=== PATIENT | female | born 1985 | race Two or more races ===

== ENCOUNTER 2017-04-08 15:28 | Emergency (ER) | payer BC, OTHER ==
[~2017-04-08] VITALS: Ht 160 cm; Wt 79.0 kg
[2017-04-08 15:46] VITALS: Ht 160 cm; Wt 79.0 kg
[2017-04-08 17:28] LABS: ADD SCAN DIFF NO
[2017-04-08 17:30] LABS: BASOPHILS % 0.6 % (0.0-2.0); EOSINOPHILS # 0.2 10^3/ul (0.0-0.5); EOSINOPHILS % 3.9 % (0.0-7.0); HEMATOCRIT 34.7 % (37.0-47.0); HEMOGLOBIN 10.8 g/dl (12.0-16.0); LYMPHOCYTES # 1.9 10^3/ul (0.8-2.9); LYMPHOCYTES % 34.1 % (15.0-51.0); MEAN CORPUSCULAR HEMOGLOBIN 20.9 pg (29.0-33.0); MEAN CORPUSCULAR HGB CONC 31.1 g/dl (32.0-37.0); MEAN CORPUSCULAR VOLUME 67.2 fl (82.0-101.0); MEAN PLATELET VOLUME 9.4 fl (7.4-10.4); MONOCYTE # 0.3 10^3/ul (0.3-0.9); MONOCYTES % 6.3 % (0.0-11.0); NEUTROPHILS % 54.7 % (39.0-77.0); PLATELET COUNT 300 10^3/UL (140-415); RED BLOOD COUNT 5.16 10^6/ul (4.20-5.40); RED CELL DISTRIBUTION WIDTH 17.3 % (11.5-14.5); WHITE BLOOD COUNT 5.4 10^3/ul (4.8-10.8)
[2017-04-08 17:32] LABS: ADD UMIC YES; URINE BILIRUBIN (Dip) NEGATIVE (NEGATIVE); URINE BLOOD (Dip) 3+ (NEGATIVE); URINE COLOR LT. RED (YELLOW); URINE GLUCOSE (Dip) NEGATIVE (NEGATIVE); URINE KETONES (Dip) NEGATIVE (NEGATIVE); URINE LEUKOCYTE ESTERASE (Dip) NEGATIVE (NEGATIVE); URINE NITRITE (Dip) NEGATIVE (NEGATIVE); URINE TOTAL PROTEIN (Dip) 1+ (NEGATIVE); URINE UROBILINOGEN (Dip) 0.2 E.U./dL (0.1-1.0)
[2017-04-08 17:46] LABS: SQUAMOUS EPITHELIAL CELL,UR FEW; URINE RBCS >200 /HPF (0)
--- NOTE | 2017-04-08 18:52 | RADRPT ---
PROCEDURE: US Pelvis CLINICAL INDICATION: vaginal bleeding TECHNIQUE: Multiple sonographic images of the pelvis were obtained utilizing a transabdominal and endovaginal technique. The images were reviewed on a PACS workstation. COMPARISON: None. LMP: 03/15/2017 FINDINGS: The uterus measures 8.0 x 4.7 x 5.7 cm. The endometrial echo complex measures 4 mm in thickness. T here is trace endocervical fluid. The uterus is heterogeneous and the junctional zone between the en dometrium and myometrium is indistinct. The right ovary measures 2.2 x 1.0 x 2.4 cm. The left ovary measures 3.0 x 1.4 x 1.4 cm. There is no rmal vascular flow in both ovaries. No significant ovarian lesions are seen. No significant pelvic free fluid is identified. IMPRESSION: The uterus is heterogeneous and the junctional zone between the endometrium and myometrium is indist inct. Clinical correlation for adenomyosis is recommended. There is trace endocervical fluid which may be related to stage of the menstrual cycle. Bilateral ovaries adnexa are unremarkable. RPTAT: EE Physician Erik Date Time Electronically viewed and signed by Physician Erik on 04/08/2017 18:52 /
[2017-04-08] MEDS ORDERED: ACET500C5 PO (19:15)
--- NOTE | 2017-04-08 19:20 | ERD ---
ER Documentation Chief Complaint Date/Time DATE: 04/08/17 TIME: 19:16 Chief Complaint VAGINAL BLEEDING SINCE March WITH BLOOD CLOTS, 8/10 PAIN, DIZZINESS HPI Patient is a 32-year-old female who presents to the ED with vaginal bleeding 6 months. She states in the last 2 weeks her vaginal bleeding has increased and is passing clots. She states that she went to the [facility] 4 days ago and was given progesterone. However she states that the bleeding has not stopped and she is changing 5-6 pads a day. She denies she has mild dizziness. Denies headache or neck pain or neck stiffness. Denies chest pain or cough or shortness of breath. Denies leg pain or swelling. Denies abdominal pain, nausea, vomiting or diarrhea. States that she does have pelvic pain. She states that her primary care provider has given her control pills however her bleeding has not stopped. No other complaints. ROS All systems reviewed and are negative except as per history of present illness. Medications Home Meds Active Scripts Acetaminophen* (Tylophen*) 500 Mg Capsule, 1 CAP PO Q6H Y for PAIN AND OR ELEVATED TEMP, #20 CAP Prov:ELAINA RAY PA-C 04/08/17 Allergies Allergies: Coded Allergies: No Known Allergy (Unverified , 04/08/17) PMhx/Soc Medical and Surgical Hx: pt denies Medical Hx, pt denies Surgical Hx History of Surgery: Yes ( appendectomy, cholecystectomy) Hx Miscellaneous Medical Probl: Yes (Depression) Hx Alcohol Use: No Hx Substance Use: No Hx Tobacco Use: No Smoking Status: Never smoker FmHx Family History: No coronary disease, No diabetes, No other Physical Exam Vitals Vital Signs Date Time Temp Pulse Resp B/P Pulse Ox O2 Delivery O2 Flow Rate FiO2 04/08/17 15:46 99.7 92 17 116/70 100 Physical Exam GENERAL: Well-developed, well-nourished female. Appears in no acute distress. HEAD: Normocephalic, atraumatic. EYES: Pupils are equally reactive bilaterally. EOMs grossly intact. No conjunctival erythema. ENT: Moist mucous membranes. No uvula deviation. No kissing tonsils. No exudates. NECK: Supple. No lymphadenopathy or thyromegaly. No meningismus. negative kernig. negative brudinski. LUNG: Clear to auscultation bilaterally. No rhonchi, wheezing, rales or coarse breath sounds. HEART: Regular rate and rhythm. No murmurs, rubs or gallops. ABDOMEN: No scars, ecchymosis or rashes noted. Soft, nontender, and nondistended. Positive bowel sounds in all four quadrants. No rebound tenderness , no guarding. (-) McBurneys point tenderness. No CVA tenderness. BACK: No midline tenderness. Extremities: Equal pulses bilaterally. No peripheral clubbing, cyanosis or edema. No unilateral leg swelling. NEUROLOGIC: Alert and oriented. Moving all four extremities. 5/5 strength in all extremities. Normal speech. Steady gait. SKIN: Normal color. Warm and dry. No rashes or lesions. Capillary refill < 2 seconds Result Diagram: 04/08/17 1725 Results 24 hrs Laboratory Tests Test 04/08/17 17:25 White Blood Count 5.410^3/ul Red Blood Count 5.1610^6/ul Hemoglobin 10.8g/dl Hematocrit 34.7% Mean Corpuscular Volume 67.2fl Mean Corpuscular Hemoglobin 20.9pg Mean Corpuscular Hemoglobin Concent 31.1g/dl Red Cell Distribution Width 17.3% Platelet Count 97967^3/UL Mean Platelet Volume 9.4fl Neutrophils % 54.7% Lymphocytes % 34.1% Monocytes % 6.3% Eosinophils % 3.9% Basophils % 0.6% Nucleated Red Blood Cells % 0.0/100WBC Neutrophils # 3.010^3/ul Lymphocytes # 1.910^3/ul Monocytes # 0.310^3/ul Eosinophils # 0.210^3/ul Basophils # 0.010^3/ul Nucleated Red Blood Cells # 0.010^3/ul Urine Color LT. RED Urine Clarity SLIGHTLY CLOUDY Urine pH 5.5 Urine Specific Bath <=1.005 Urine Ketones NEGATIVE Urine Nitrite NEGATIVE Urine Bilirubin NEGATIVE Urine Urobilinogen 0.2 E.U./dL Urine Leukocyte Esterase NEGATIVE Urine Microscopic RBC >200/HPF Urine Microscopic WBC 0-2/HPF Urine Squamous Epithelial Cells FEW Urine Hemoglobin 3+ Urine Glucose NEGATIVE% Urine Total Protein 1+ Procedures/MDM ER COURSE: I kept the patient and/or family informed of laboratory and diagnostic imaging results throughout the emergency room course. IMAGING STUDIES [place] [address] Radiology Main Line: [phone] DIAGNOSTIC IMAGING REPORT Patient: STARR DURAN : 1985 Age: 32 Sex: F MR #: [id number] DOS: 04/08/17 1708 Ordering MD: ELAINA RAY PA-C Location: [facility] Room/Bed: PROCEDURE: US Pelvis CLINICAL INDICATION: vaginal bleeding TECHNIQUE: Multiple sonographic images of the pelvis were obtained utilizing a transabdominal and endovaginal technique. The images were reviewed on a PACS workstation. COMPARISON: None. LMP: 03/15/2017 FINDINGS: The uterus measures 8.0 x 4.7 x 5.7 cm. The endometrial echo complex measures 4 mm in thickness. There is trace endocervical fluid. The uterus is heterogeneous and the junctional zone between the endometrium and myometrium is indistinct. The right ovary measures 2.2 x 1.0 x 2.4 cm. The left ovary measures 3.0 x 1.4 x 1.4 cm. There is normal vascular flow in both ovaries. No significant ovarian lesions are seen. No significant pelvic free fluid is identified. IMPRESSION: The uterus is heterogeneous and the junctional zone between the endometrium and myometrium is indistinct. Clinical correlation for adenomyosis is recommended. There is trace endocervical fluid which may be related to stage of the menstrual cycle. Bilateral ovaries adnexa are unremarkable. RPTAT: EE Physician Erik Date Time Electronically viewed and signed by Bob Mathew Physician on 04/08/2017 18:52 RA/ CC: ELAINA RAY PA-C LABORATORY STUDIES CBC does not show signs of severe anemia or infection. Urine dip is negative for nitrites or leukocytes but does show hemoglobin. Negative test MEDICAL DECISION MAKING: This is a 32-year-old female who presents with vaginal bleeding 6 months. Vital signs were reviewed. Patient is afebrile. Patient is not hypoxic. She is not toxic or ill-appearing. At this point patient blood work does not show signs of severe anemia but does show anemia. At this point patient does not need transfusion. Her ultrasound is read by radiologist shows possible adenomyosis. Low suspicion for ovarian torsion, PID, tuboovarian abscess, ectopic , bowel obstruction, pyelonephritis, UTI, appendicitis, cervicitis, septic , molar , HELLP syndrome. All results were explained to patient. DISCHARGE: At this time, patient is stable for discharge and outpatient management with no new complaints during the ER course. Patient was sent home with referral to see an [facility] doctor. I gave information to patient Adenomyosis. Patient to continue taking the control pills and other medications she has as prescribed by her primary care provider.. Patient was also given a copy of all laboratory studies and imaging report. Patient will be discharged home with instructions to recheck for new or worsening symptoms such as fever, nausea, weakness, LOC and to follow up with primary care in the next 1-2 days. Patient was advised to return to the ER for any new or worsening symptoms. Plan was discussed and patient and/or family understands and agrees. Home instructions were given. Departure Diagnosis: Primary Impression: Vaginal bleeding Condition: Stable Referrals: PARTH SIMS MD,ZOHREH ELDRIDGE,MICKIE TELLES,JAMARI ABARCA MD, MD,DOMINIC MANZANO MD Additional Instructions: FOLLOW UP WITH [facility] Call your primary care doctor TOMORROW for an appointment during the next 1-2 days.See the doctor sooner or return here if your condition worsens before your appointment time. ELAINA RAY PA-C April 08, 2017 19:20
[2017-04-08 19:28] VITALS: BP 109/88; PULSE 88; RESP 20; TEMP 98.7
== END 2017-04-08 19:29 | disposition home or self-care (01) ==
LOC: FTE 15:28
DX: N93.9 Abnormal uterine and vaginal bleeding, unspecified (principal); R10.2 Pelvic and perineal pain
CPT/HCPCS: 76830; 76856; 81001; 85025

== ENCOUNTER 2017-10-20 17:18 | Emergency (ER) | payer BC ==
[~2017-10-20] VITALS: Ht 160 cm; Wt 85.3 kg
[~2017-10-20 17:18] MED LIST: ACET500C5 PO
[2017-10-20 17:48] VITALS: Ht 160 cm; Wt 85.3 kg
[2017-10-20] MEDS ORDERED: IPRATROPIUM (NEB) 0.5 MG/2.5 ML AMP NEB STA (21:01)
[2017-10-20] MEDS ORDERED: ALBUTEROL 0.083% (NEB) 2.5 MG/3 ML AMP NEB STA (21:01)
[2017-10-20] MEDS ORDERED: predniSONE 20 MG TAB PO STA (21:01)
--- NOTE | 2017-10-20 21:01 | ERD ---
ER Documentation Chief Complaint Chief Complaint asthma and cold symptoms x 4 days HPI This 32 yr old female presents to ED for cough, wheezing and tightness and heaviness in chest , waking at night SOB, HX asthma, using albuterol as prescribed patient reports she has another inhaler at home that she takes twice a day unsure of name of medication., denies any fever, chills, reports sore throat, and or otalgia, patient able to eat and drink without deficit, reports pain with swallowing. ROS All systems reviewed and are negative except as per history of present illness. Medications Home Meds Active Scripts Acetaminophen* (Tylophen*) 500 Mg Capsule, 1 CAP PO Q6H Y for PAIN AND OR ELEVATED TEMP, #20 CAP Prov:ELAINA RAY PA-C 04/08/17 Allergies Allergies: Coded Allergies: No Known Allergy (Unverified , 04/08/17) PMhx/Soc History of Surgery: Yes ( appendectomy, cholecystectomy) Hx Respiratory Disorders: Yes (asthma ) Hx Miscellaneous Medical Probl: Yes (Depression) Hx Alcohol Use: No Hx Substance Use: No Hx Tobacco Use: No Physical Exam Vitals Vital Signs Date Time Temp Pulse Resp B/P Pulse Ox O2 Delivery O2 Flow Rate FiO2 10/20/17 21:07 80 20 97 21 10/20/17 17:48 99.9 78 18 125/72 98 Vitals stable, triage notes reviewed Physical Exam Const: Well-nourished, well-appearing, well-hydrated 32-year-old female in no acute distress Eyes: Normal Conjunctiva ENT: Lateral tympanic membranes translucent, positive light reflex, no air- fluid level, nasal mucosa moist, turbinates nonedematous, pharynx erythemic, tongue midline, uvula midline without shift, rises and falls with pronation. Neck: Full range of motion..~ No meningismus. No cervical chain nodes, no mandibular tendinopathy Resp: Chest rises and falls symmetrically, poor air movement posteriorly with inhalation and exhalation diminished posterior bases, seen with forced expiration Cardio: Regular rate and rhythm, no murmurs Neur: Awake and alert Psych: Normal Mood and Affect Results 24 hrs Current Medications Medications (Trade) Dose Ordered Sig/Cory Route PRN Reason Start Time Stop Time Status Last Admin Dose Admin Albuterol (Proventil 0.083% (Neb)) 2.5 mg ONCE STAT NEB 10/20/17 21:01 10/20/17 21:03 DC 10/20/17 21:07 Ipratropium Goldvein (Atrovent 0.02% (Neb)) 0.5 mg ONCE STAT NEB 10/20/17 21:01 10/20/17 21:03 DC 10/20/17 21:07 Prednisone (Prednisone) 60 mg ONCE STAT PO 10/20/17 21:01 10/20/17 21:03 DC 10/20/17 21:09 Procedures/MDM This 32-year-old female presents to emergency department for evaluation of asthma symptoms, patient reports a tight heaviness in chest, reports waking at night with shortness of breath, patient states she does have a history of asthma uses albuterol and a controller, does not know the name of the controller medication. Patient also reports sore throat, fatigue, or otalgia. Patient is able to eat and drink without deficit reports pain with swallowing. Emergency room course includes history and physical exam, albuterol, Atrovent, hand-held nebulized treatment and 60 mg of prednisone., Posttreatment assessment, increased aeration with deep breathing, patient will be discharged home with 40 mg of prednisone 4 days, albuterol inhaler will be refilled, follow-up with primary care physician for reevaluation of maintenance inhaler efficiency, [id number] cold medication of choice if sore throat, or otalgia, generalized fatigue persists. Return to emergency room for shortness of breath, wheezing not responding to treatment. Fever not responding to medication. Patient is stable with no new complaints during ER course, clinically there is no current evidence to suggest meningitis, foreign body in airway, pneumonia, respiratory distress, acute coronary syndromes, pulmonary embolism or any other emergent condition appearing to require further evaluation or hospitalization. I feel the patient is stable for discharge at this time. I have discussed results, examination findings, the treatment plan with the patient and family present prior to discharge. Indications for emergent reevaluation, side effects of medication were also discussed. All questions were answered. Patient verbalizes understanding and agrees with plan of care. Departure Diagnosis: Primary Impression: Asthma Asthma severity: mild Asthma persistence: persistent Asthma complication type: uncomplicated Qualified Code: J45.30 - Mild persistent asthma without complication Additional Impression: URI, acute Condition: Good Patient Instructions: Adult Self-Care for Colds, Asthma, Acute (Adult) Referrals: [facility] Additional Instructions: Thank you for for coming to [facility] for your care today. Please ask your nurse or provider if you have questions about your care today and do not leave until all your questions have been answered. Please use any medications given as directed and follow-up with your doctor (or the doctor you were referred to) in the next 2-3 days. If you do not have a primary care doctor you may [place] [facility] [place] You may also use motrin and tylenol as needed for fever and/or pain unless instructed otherwise by your provider or nurse. Indications for more urgent follow-up have been discussed, but you may return to the Emergency Department at ANY time for any worrisome or worsening symptoms. If you have abdominal pain, please know that no test or exam you received is perfect and you should follow up within 8 hours for continued pain. If you had any imaging studies today, such as an X-Ray or CT Scan, these studies will be reviewed later by a radiologist. You will be called if there are important findings that were not identified today, so make sure the contact information you provided at registration is correct. If you received any narcotic pain control medicine today, such as Vicodin, Morphine or Dilaudid, your coordination and judgment may be affected for a number of hours. Please do not drive or operate heavy machinery, and you may want someone to assist you at home. If you were given a prescription for narcotic medication, be aware that it is very addictive- use sparingly and only if necessary. LOS TREADWELL Oct 20, 2017 21:01
[2017-10-20] MEDS ORDERED: PRED20TA PO (21:47)
[2017-10-20] MEDS ORDERED: ALBU18HF INHALATION (21:48)
[2017-10-20 22:04] VITALS: BP 105/59; PULSE 78; RESP 18; TEMP 99.4
== END 2017-10-20 22:05 | disposition home or self-care (01) ==
LOC: FTE 17:18
DX: J45.30 Mild persistent asthma, uncomplicated (principal); J06.9 Acute upper respiratory infection, unspecified
CPT/HCPCS: 94664; 99284; J7512; Z7610